=== PATIENT | female | born 2000 | race Caucasian/White ===

== ENCOUNTER 2018-03-02 03:56 | Emergency (ER) | payer OTHER ==
[~2018-03-02] VITALS: Ht 165.1 cm; Wt 61.4 kg
[2018-03-02 04:01] VITALS: BP 126/97; TEMP 98.5
[2018-03-02] MEDS ORDERED: INTUNIV2 MG PO (04:01)
[2018-03-02] MEDS ORDERED: RITALIN 5MG5 MG/TAB PO (04:01)
[2018-03-02] MEDS ORDERED: ZANTAC 150MG T150 MG PO (05:04)
[2018-03-02] MEDS ORDERED: BENADRYL25 M2 PO (05:04)
[2018-03-02 05:34] VITALS: PULSE 71
[2018-03-02] MEDS ORDERED: PREDNISONE20 MG PO (14:10)
== END 2018-03-02 05:33 | disposition home or self-care (01) ==
LOC: COL.ER 03:56
DX: T78.40XA Allergy, unspecified, initial encounter (principal)

== ENCOUNTER 2018-03-02 12:00 | Emergency (ER) | payer OTHER ==
[~2018-03-02] VITALS: Ht 165.1 cm; Wt 61.4 kg
[~2018-03-02 12:00] MED LIST: BENADRYL25 M2 PO; INTUNIV2 MG PO; RITALIN 5MG5 MG/TAB PO; ZANTAC 150MG T150 MG PO
[2018-03-02 12:09] VITALS: TEMP 98.5
[2018-03-02] MEDS ORDERED: PREDNISONE20 MG PO (14:10)
[2018-03-02 14:21] VITALS: BP 112/79; PULSE 65
== END 2018-03-02 14:21 | disposition home or self-care (01) ==
LOC: COL.ER 12:00
DX: T78.3XXA Angioneurotic edema, initial encounter (principal)
CPT/HCPCS: J1200; J2930; J7030